=== PATIENT | female | born 1990 | race American Indian/Alaskan Native ===

== ENCOUNTER 2018-03-28 08:26 | Emergency (ER) | payer MEDICAID ==
[2018-03-28 09:30] VITALS: BMI 32.8
--- NOTE | 2018-03-28 12:54 | US ---
Date of service: 03/28/2018 PROCEDURE: Limited obstetrical ultrasound examination HISTORY: EFW/dating and cervical length only COMPARISON: Not available TECHNIQUE: Transabdominal FINDINGS: Single live intrauterine gestation identified in breech presentation. heart rate 134 beats per minute. Grossly normal amniotic fluid volume. Anterior placenta. No previa. Cervix closed and measures 4.7 cm in length. biometry yields a gestational age of 23 weeks 5 days. [place] by ultrasound is 07/20/2018. The EFW is 637.81 g. anatomy was not evaluated at this time. Note is made of a 4 chamber heart. There is fluid distending the stomach and urinary bladder. IMPRESSION: Single live intrauterine gestation of approximately 23 weeks 5 days gestational age. Breech presentation. No previa. Anterior placenta. Normal amniotic fluid volume. Heart rate 134. Anatomic evaluation not performed at this time as per request from emergency department
[2018-03-28 19:10] VITALS: BP 114/89; PULSE 113; O2SAT 99
== END 2018-03-28 13:55 | disposition home or self-care (01) ==
LOC: H.EROB2 08:26
DX: O26.92 Pregnancy related conditions, unspecified, second trimester (principal); R10.2 Pelvic and perineal pain; Z3A.24 24 weeks gestation of pregnancy

== ENCOUNTER 2018-03-30 21:56 | Emergency (ER) | payer MEDICAID ==
[2018-03-30 21:56] VITALS: BMI 32.8
[2018-03-30 22:06] VITALS: PULSE 89; RESP 18; TEMP 98.3
[2018-03-30 22:47] LABS: BASO % 0.2 % (0.0-2.0); EOS # 0.1 K/uL (0.0-0.7); EOS % 0.9 % (0.0-4.0); HEMOGLOBIN 10.9 g/dL (12.0-16.0); LYMPH % 28.7 % (20.0-40.0); MEAN CELL VOLUME 91.1 fl (81.0-99.0); MEAN CORPUSCULAR HEMOGLOBIN 30.8 pg (27.0-31.0); MEAN CORPUSCULAR HGB CONC 33.8 g/dL (33.0-37.0); MEAN PLATELET VOLUME 8.6 fl (7.2-11.7); MONO # 0.4 K/uL (0.0-0.8); MONO % 6.4 % (0.0-10.0); NEUT # 4.4 K/uL (1.8-7.0); NEUT % 63.8 % (50.0-75.0); RBC 3.53 Mil/uL (3.80-5.20); WHITE BLOOD COUNT 6.9 K/uL (4.8-10.8)
[2018-03-30 22:58] LABS: ALBUMIN 3.2 g/dL (3.5-5.0); ALT/SGPT 20 U/L (9-52); AST/SGOT 20 U/L (14-36); BLOOD UREA NITROGEN 6 mg/dl (7-17); CALCIUM 8.8 mg/dL (8.4-10.2); GFR NON-AFRICAN AMERICAN > 60
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
--- NOTE | 2018-03-31 00:14 | ED PDOC ---
- Laboratory Results Result Diagrams: 03/30/18 22:40 03/30/18 22:40 - ECG O2 Sat by Pulse Oximetry: 99 (RA) Medical Decision Making Medical Decision Making: Time: 00:00 --Patient labs have been reviewed and patient is medically stable for psychiatric admission if required. Patient care endorsed from Dr. Murray to Dr. Mccurdy pending crisis eval. Scribe Attestation: Documented by Greg Carvalho acting as a scribe for Noah Mccurdy MD. Provider Scribe Attestation: All medical record entries made by the Scribe were at my direction and personally dictated by me. I have reviewed the chart and agree that the record accurately reflects my personal performance of the history, physical exam, medical decision making, and the department course for this patient. I have also personally directed, reviewed, and agree with the discharge instructions and disposition. Disposition - Clinical Impression Clinical Impression: Schizophrenia - POA Present On Arrival: None - Disposition Referrals: [facility] [Outside] Disposition: Routine/Home Disposition Time: 05:00 Condition: GOOD Instructions: Schizophrenia
[2018-03-31 05:44] VITALS: BP 110/77
[2018-03-31 19:03] VITALS: O2SAT 99
== END 2018-03-31 05:58 | disposition home or self-care (01) ==
LOC: H.ER 21:56
DX: O99.342 Other mental disorders complicating pregnancy, second trimester (principal); F20.9 Schizophrenia, unspecified; R45.851 Suicidal ideations; Z3A.24 24 weeks gestation of pregnancy

== ENCOUNTER 2018-04-06 18:51 | Inpatient (IN) | payer MEDICAID ==
[2018-04-06 18:52] VITALS: BMI 32.8
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
[2018-04-06 20:06] LABS: BASO % 0.2 % (0.0-2.0); EOS # 0.1 K/uL (0.0-0.7); EOS % 0.8 % (0.0-4.0); HEMOGLOBIN 10.2 g/dL (12.0-16.0); LYMPH # 1.8 K/uL (1.0-4.3); LYMPH % 25.1 % (20.0-40.0); MEAN CELL VOLUME 90.3 fl (81.0-99.0); MEAN CORPUSCULAR HEMOGLOBIN 31.1 pg (27.0-31.0); MEAN CORPUSCULAR HGB CONC 34.4 g/dL (33.0-37.0); MEAN PLATELET VOLUME 8.7 fl (7.2-11.7); MONO # 0.5 K/uL (0.0-0.8); MONO % 7.5 % (0.0-10.0); NEUT # 4.9 K/uL (1.8-7.0); NEUT % 66.4 % (50.0-75.0); NRBC % 0.1 % (0.0-0.0); RBC 3.29 Mil/uL (3.80-5.20); RED CELL DISTRIBUTION WIDTH 13.9 % (11.5-14.5); WHITE BLOOD COUNT 7.3 K/uL (4.8-10.8)
[2018-04-06 20:12] LABS: SQUAMOUS EPITHIAL 2 /hpf (0-5); URINE AMORPHOUS SEDIMENT MANY /ul (<OCC); URINE BACTERIA RARE (<OCC); URINE BILIRUBIN NEGATIVE (NEGATIVE); URINE BLOOD NEGATIVE (NEGATIVE); URINE CLARITY CLOUDY (Clear); URINE COLOR YELLOW (YELLOW); URINE GLUCOSE (UA) NEG (Normal); URINE LEUKOCYTE ESTERASE NEG Leu/uL (Negative); URINE PROTEIN NEGATIVE (NEGATIVE); URINE UROBILINOGEN 0.2-1.0 mg/dL (0.2-1.0)
[2018-04-06 20:21] LABS: ALB/GLOB RATIO 1.1 (1.0-2.1); ALT/SGPT 19 U/L (9-52); AST/SGOT 18 U/L (14-36); BLOOD UREA NITROGEN 9 mg/dl (7-17); CALCIUM 8.9 mg/dL (8.4-10.2); GFR NON-AFRICAN AMERICAN > 60
[2018-04-06 20:34] LABS: BARBITURATES, UR NEGATIVE (NEGATIVE); BENZODIAZEPINES, UR NEGATIVE (NEGATIVE); OPIATES, UR NEGATIVE (NEGATIVE); PHENCYCLIDINE, UR NEGATIVE (NEGATIVE)
[2018-04-07 09:31] VITALS: O2SAT 99
--- NOTE | 2018-04-07 13:53 | CP.PCM.CON ---
History of Present Illness - History of Present Illness History of Present Illness: 28 yo female 6 months with history of anxiety and schizophrenia admitted to psyche unit because of increased agitation. Review of Systems - Review of Systems All systems: reviewed and no additional remarkable complaints except (aside from those mentioned above, 12 point system review were negative by me) Past Patient History - Infectious Disease Hx of Infectious Diseases: None - Past Social History Smoking Status: Unknown If Ever Smoked Chewing Tobacco Use: No Cigar Use: No Alcohol: None Drugs: Denies Home Situation {Lives}: With Family - CARDIAC Hx Cardiac Disorders: No - PULMONARY Hx Tuberculosis: No - NEUROLOGICAL HX Cerebrovascular Accident: No Hx Seizures: No - HEMATOLOGICAL/ONCOLOGICAL Hx Cancer: No Hx Human Immunodeficiency Virus (HIV): No - GENITOURINARY/GYNECOLOGICAL Hx Sexually Transmitted Disorders: No - PSYCHIATRIC Hx Anxiety: Yes Hx Depression: Yes Hx Schizophrenia: Yes - SURGICAL HISTORY Hx Surgeries: No - ANESTHESIA Hx Anesthesia: No Hx Anesthesia Reactions: No Meds Allergies/Adverse Reactions: Allergies Allergy/AdvReac Type Severity Reaction Status Date / Time pollen extracts Allergy Verified 03/06/18 19:37 - Medications Medications: Current Medications Diphenhydramine HCl (Benadryl) 25 mg PO Q12 PRN PRN Reason: Allergy symptoms Haloperidol (Haldol) 0.5 mg PO BID CARMINA Haloperidol (Haldol) 0.5 mg PO HS CARMINA Haloperidol (Haldol) 2 mg PO Q12 PRN PRN Reason: Agitation Multivit/Folic Acid/Iron () 1 tab PO DAILY CARMINA Physical Exam - Constitutional Appears: No Acute Distress - Head Exam Head Exam: ATRAUMATIC - Eye Exam Eye Exam: absent: Scleral icterus - ENT Exam ENT Exam: Mucous Membranes Moist - Neck Exam Neck exam: Negative for: Meningismus - Respiratory Exam Respiratory Exam: absent: Rales, Rhonchi, Wheezes, Respiratory Distress - Cardiovascular Exam Cardiovascular Exam: REGULAR RHYTHM, +S1, +S2 - GI/Abdominal Exam GI & Abdominal Exam: Distended, Soft. absent: Tenderness - Rectal Exam Rectal Exam: Deferred - Extremities Exam Extremities exam: Negative for: calf tenderness - Back Exam Back exam: NORMAL INSPECTION - Neurological Exam Neurological exam: Alert, Oriented x3 - Psychiatric Exam Psychiatric exam: Normal Affect - Skin Skin Exam: Dry, Intact Results - Vital Signs Recent Vital Signs: Last Vital Signs Temp 98.5 F 04/07/18 12:33 Pulse 61 04/07/18 12:33 Resp 17 04/07/18 12:33 BP 98/50 L 04/07/18 12:33 Pulse Ox 99 04/07/18 08:00 - Labs Result Diagrams: 04/06/18 19:56 04/06/18 20:08 Labs: Laboratory Results - last 24 hr 04/06/18 04/06/18 04/06/18 19:45 19:45 19:56 WBC RBC Hgb Hct MCV MCH MCHC RDW Plt Count MPV Neut % (Auto) Lymph % (Auto) [place] % (Auto) Eos % (Auto) Baso % (Auto) Neut # (Auto) Lymph # (Auto) [place] # (Auto) Eos # (Auto) Baso # (Auto) Sodium Potassium Chloride Carbon Dioxide Anion Gap BUN Creatinine Est GFR ( Amer) Est GFR (Non-Af Amer) Random Glucose Calcium Total Bilirubin AST ALT Alkaline Phosphatase Total Protein Albumin Globulin Albumin/Globulin Ratio Beta HCG, Quant Urine Color Yellow Urine Clarity Cloudy Urine pH 7.0 Ur Specific [place] 1.018 Urine Protein Negative Urine Glucose (UA) Neg Urine Ketones Negative Urine Blood Negative Urine Nitrate Negative Urine Bilirubin Negative Urine Urobilinogen 0.2-1.0 Ur Leukocyte Esterase Neg Urine RBC (Auto) 3 Ur Squamous Epith Cells 2 Amorphous Sediment Many H Urine Bacteria Rare Urine Opiates Screen Negative Urine Methadone Screen Negative Ur Barbiturates Screen Negative Ur Phencyclidine Scrn Negative Ur Amphetamines Screen Negative U Benzodiazepines Scrn Negative U Oth Cocaine Metabols Negative U Cannabinoids Screen Negative Alcohol, Quantitative < 10 04/06/18 04/06/18 19:56 20:08 WBC 7.3 RBC 3.29 L Hgb 10.2 L Hct 29.7 L MCV 90.3 MCH 31.1 H MCHC 34.4 RDW 13.9 Plt Count 163 MPV 8.7 Neut % (Auto) 66.4 Lymph % (Auto) 25.1 [place] % (Auto) 7.5 Eos % (Auto) 0.8 Baso % (Auto) 0.2 Neut # (Auto) 4.9 Lymph # (Auto) 1.8 [place] # (Auto) 0.5 Eos # (Auto) 0.1 Baso # (Auto) 0.0 Sodium 136 Potassium 3.8 Chloride 107 Carbon Dioxide 23 Anion Gap 10 BUN 9 Creatinine 0.6 L Est GFR ( Amer) > 60 Est GFR (Non-Af Amer) > 60 Random Glucose 89 Calcium 8.9 Total Bilirubin 0.1 L AST 18 ALT 19 Alkaline Phosphatase 56 Total Protein 5.9 L Albumin 3.0 L Globulin 2.8 Albumin/Globulin Ratio 1.1 Beta HCG, Quant 00297.00 Urine Color Urine Clarity Urine pH Ur Specific [place] Urine Protein Urine Glucose (UA) Urine Ketones Urine Blood Urine Nitrate Urine Bilirubin Urine Urobilinogen Ur Leukocyte Esterase Urine RBC (Auto) Ur Squamous Epith Cells Amorphous Sediment Urine Bacteria Urine Opiates Screen Urine Methadone Screen Ur Barbiturates Screen Ur Phencyclidine Scrn Ur Amphetamines Screen U Benzodiazepines Scrn U Oth Cocaine Metabols U Cannabinoids Screen Alcohol, Quantitative Assessment & Plan (1) Agitation Status: Acute
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
--- NOTE | 2018-04-07 17:42 | PCM.BM ---
<Heron Jenkins - Last Filed: 04/07/18 17:40> Treatment Plan Problems - Problems identified on initial assessmt Altered Thought Process Date Initiated: 04/07/18 Time Initiated: 17:41 Assessment reference: NA Status: Active Suicidal Ideation Date Initiated: 04/07/18 Time Initiated: 17:42 Assessment reference: NA Status: Active Treatment assets and liabiliti Patient Assests: cooperative Patient Liabilities: relationship conflicts - Milieu Protocol Maintain good personal hygiene: daily Encourage regular showers, daily Remind patient to perform daily oral care, daily Assist patient to perform ADL's Conduct patient checks and document Observation sheet: Q15 minutes Maintain personal safety: every shift Educate patient to report safety concerns to staff, every shift Monitor environment for contraband/sharps Medication safety: Monitor for expected outcome, potential side effects: every shift, Assess barriers to learning: every shift, Assess readiness for medication education: every shift Milieu Narrative: pt at current time is mother reported to be POA discussed with pt and mother the risks and benefits of being on psychotropic medications during the discussed that haldol is considered evidence based to be the safest during and also as pt has been decomensating after being palced on latuda , will, start haldol 0.5mg tid , with benadryl prn for EPS pt will be monitored for psychopharmacological effect and side effect profile 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 and supportive therapy Family Contact Family involvement: Family/SO is involved Discharge/Continuing Care - Treatment Team Participation Patient/Family/SO Statement: pt at current time is mother reported to be POA discussed with pt and mother the risks and benefits of being on psychotropic medications during the discussed that haldol is considered evidence based to be the safest during and also as pt has been decomensating after being palced on latuda , will, start haldol 0.5mg tid , with benadryl prn for EPS pt will be monitored for psychopharmacological effect and side effect profile 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 Pt's mother still endorses that she has POA to make pt's medical and financial decisions despite continually failing to produce documents that corroborate this. Chey reported that she advised pt to sign the 48 hour notice because she belongs at home where her family can care for her. Chey denied that she believes pt is a danger to herself at this time or at the time of admission, despite PES assessment reporting that pt's mother advocated for admission for pt's safety. Chey produced an appointment card that showed that pt has an appointment to see Manjinder Barbosa at [facility] on 04/18/18 at 1300. Chey hopes that pt can be discharged on 04/09/18. - Goals for Treatment Patient goals for treatment: Pt was unable to express any specific goals for treatment. Patient's family/SO goals for treatment: Pt's mother could not express any specific goals for treatment and stated that she wants her daughter to return home. Discharge/Continuing Care - Education Needs Education Needs: Family Medication, Family Diagnosis/Disease Process, Family Coping Skills, Family Placement options, Family Community resources, Family Aftercare Safety Plan, Patient Medication, Patient Diagnosis/Disease Process, Patient Coping Skills, Patient Placement options, Patient Community resources, Patient Aftercare Safety Plan - Discharge Discharge Criteria: Tolerates medication w/o severe side effects, Free of Suicidal thoughts, Free of paranoid thoughts, Free of agitation, Ability to care for self, Reduction of target symptoms Discharge to:: Home, With Family - Additional Comments 04/11/18 07:14 Pt was seen in treatment team on 04/09/18. Pt expressed that she needed to leave the hospital because she "is a mom." Pt was irritable and defiant and was unwilling to speak with staff. Pt is currently being referred for involuntary screening by [facility]. - Treatment Team Participation Discussed with Family/SO: Yes Was Patient/Family/SO present at Treatment Team Meeting: Yes
[2018-04-08 08:10] LABS: T4 12.1 ug/dl (5.5-11.0)
[2018-04-08] MEDS: Prenatal Multivit/Folic Acid/Iron Tab PO SCH (09:29)
[2018-04-08 09:41] VITALS: RESP 18
--- NOTE | 2018-04-08 12:20 | PCM.PYCHPN ---
Psychiatric Progress Note - Psychiatric Progress Note Patient seen today, length of contact: pt evaluated discussed with team chart reviewed Patient Chief Complaint: I could not sleep last night Problems Identified/Issues Discussed: pt seen in day room, cooperative reported feeling anxious due to poor sleep with early insomnia, discussed giving benadryl, pt reported partial clearing off of the auditory hallucinations, , denied any current suicidal or homicidal ideation, noreportedside effects of medication, presenting with limited insight into illness Medical Problems: pt has about three inpatient hospitalizations , last was at [facility] currently follows up at [facility] DSM 5 Symptoms Update: schizoaffective disorder borderline intellectual function Medication Change: No Medical Record Reviewed: Yes Mental Status Examination - Cognitive Function Orientation: Person, Place, Situation Memory: Intact Attention: Poor Concentration: Poor Association: WNL Fund of Knowledge: Poor Decription of patient's judgement and insights: poor insight and judgment - Mood Mood: Anxious - Affect Affect: Constricted - Speech Additional comments: under productive - Formal Thought Process Formal Thought Process: Hallucinations Psychotic Thoughts and Behaviors: pt presentingwith non command AH - Suicidal Ideation Suicidal Ideation: No - Homicidal Ideation Homicidal Ideation: No Goal/Treatment Plan - Goal/Treatment Plan Need for Continued Stay: Severe depression anxiety, Discharge may exacerbated symptoms Progress Toward Problem(s) and Goals/Treatment Plan: CONTINUE WITH HALDOL 0.5MG TID BENADRYL QHS FOR INSOMNIA 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
[2018-04-09] MEDS: Prenatal Multivit/Folic Acid/Iron Tab PO SCH (08:33)
[2018-04-09 09:17] VITALS: TEMP 97.9
--- NOTE | 2018-04-09 10:39 | PCM.PYCHPN ---
Psychiatric Progress Note - Psychiatric Progress Note Patient seen today, length of contact: pt evaluated discussed with team chart reviewed Patient Chief Complaint: I am hearing voices they tell me to hurt my self and hurt others Problems Identified/Issues Discussed: pt seen in bed, poor eye contact. anxious mood and affect, appears internally preoccupied, angry and verbally agressive asking the undesigned to leave the room, on further interviewing, pt reported experiencing auditory hallucinations , telling her to hurt self and hurt others, when asked how she would hurt herself , she stated she would overdose on medications, , patient guarded and paranoid towards staff, with , educted patient the need to continue on the unit for stabilization of medications, she declined and signed 48 hours requesting to be discharged Medical Problems: pt has about three inpatient hospitalizations , last was at [facility] currently follows up at [facility] DSM 5 Symptoms Update: schizoaffective disorder bipolar type Medication Change: Yes (increase haldol) Medical Record Reviewed: Yes Mental Status Examination - Cognitive Function Orientation: Person, Place, Situation Memory: Intact Attention: Poor Concentration: Poor Association: WNL Fund of Knowledge: Poor Decription of patient's judgement and insights: poor insight and judgment - Mood Mood: Anxious - Affect Affect: Constricted Additional comments: labile, irritable, angry - Speech Speech: Loud - Formal Thought Process Formal Thought Process: Hallucinations, Paranoia Psychotic Thoughts and Behaviors: pt reported auditory hallucinations asking her to hurt self and others - Suicidal Ideation Suicidal Ideation: Yes - Homicidal Ideation Homicidal Ideation: Yes Goal/Treatment Plan - Goal/Treatment Plan Need for Continued Stay: Severe depression anxiety, Discharge may exacerbated symptoms Progress Toward Problem(s) and Goals/Treatment Plan: increase haldol 2mg TID pt at current mental status continues to be danger to self and others, expressing both suicidal and homicidal ideation, pt irritable and verbally aggressive towards staff, signed 48 hours notice requesting to be discharged, pt will be referred for screening for involuntary admission for continuity further stabilization Estimated Date of D/C: 04/10/18
[2018-04-09 16:44] VITALS: BP 103/55; PULSE 64
[2018-04-09] MEDS ORDERED: Benzocaine/Menthol (Cepacol) Lozenge PO PRN (22:15)
[2018-04-10] MEDS: Prenatal Multivit/Folic Acid/Iron Tab PO SCH (13:18)
--- NOTE | 2018-04-10 15:40 | PCM.PYCHPN ---
Psychiatric Progress Note - Psychiatric Progress Note Patient seen today, length of contact: pt evaluated discussed with team chart reviewed Patient Chief Complaint: I am good Problems Identified/Issues Discussed: pt seen in day room, poor eye contact. guarded , paranoid , appears internally preoccupied, underproductive speech, poor insight into illness labile affect, refusing to participate in treatment appears responding to internal stimuli, denied command hallucinations, denied suicidal or homicidal ideation Medical Problems: pt has about three inpatient hospitalizations , last was at [facility] currently follows up at [facility] DSM 5 Symptoms Update: schizoaffective disorder borderline intellectual function Medication Change: No Medical Record Reviewed: Yes Mental Status Examination - Cognitive Function Orientation: Person, Place, Situation Memory: Intact Attention: Poor Concentration: Poor Association: WNL Fund of Knowledge: Poor Decription of patient's judgement and insights: poor insight and judgment - Mood Mood: Anxious - Affect Affect: Constricted - Speech Speech: Loud - Formal Thought Process Formal Thought Process: Hallucinations, Paranoia Psychotic Thoughts and Behaviors: pt reported auditory hallucinations asking her to hurt self and others - Suicidal Ideation Suicidal Ideation: Yes - Homicidal Ideation Homicidal Ideation: Yes Goal/Treatment Plan - Goal/Treatment Plan Need for Continued Stay: Severe depression anxiety, Discharge may exacerbated symptoms Progress Toward Problem(s) and Goals/Treatment Plan: haldol 2mg TID pt continues to be floridly psychotic , needs stabilization, pt signed 48 our notice requesting discharge, pt was screened and accepted by [facility] for involuntary admission, awaiting a bed f Estimated Date of D/C: 04/10/18
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
== END 2018-04-11 01:30 | DRG 430 ==
LOC: H.ER 18:51 → H.ERHOLD 21:35 → H.PSYCH 04-07 12:50
PROVIDERS: ADMIT Psychiatry & Neurology Psychiatry; ATTEND Psychiatry & Neurology Psychiatry
PROC: GZHZZZZ Group Psychotherapy (ICD-10-PCS; principal; 2018-04-06)
PROC: GZ58ZZZ Individual Psychotherapy, Cognitive-Behavioral (ICD-10-PCS; 2018-04-06)
DX: F25.0 Schizoaffective disorder, bipolar type (principal); O99.342 Other mental disorders complicating pregnancy, second trimester; R41.83 Borderline intellectual functioning; F41.9 Anxiety disorder, unspecified; R45.851 Suicidal ideations; R45.850 Homicidal ideations; G47.00 Insomnia, unspecified; D64.9 Anemia, unspecified

== ENCOUNTER 2018-04-29 20:39 | Emergency (ER) | payer MEDICAID ==
--- NOTE | 2018-04-29 23:41 | OBDCSUM ---
Datetime: 04/29/2018 23:08 Discharged to, Provider: Home Follow up at, Provider: [facility] Disch Instr Activity: Normal activity Disch Instr Diet: Regular Discharge Instructions, Provider: Routine instructions given Discharge Time: 04/29/2018 23:00 Follow up in weeks, Provider: Call to make appointment Disch Referrals: None Discharge Diagnosis Prov Other: Gastroenteritis at 26 weeks
--- NOTE | 2018-04-29 23:42 | OBHP ---
Datetime: 04/29/2018 22:31 IP Adm Impression: , intrauterine IP Admit Plan: Observation/Evaluation; Discharge home Admit Comment, IP Provider: 28 y/o , 26 wks based on LMP with [place] of 08/05/18 presents to [facility] with nausea, vomiting and diarrhea that started last Sunday. Patient had 2-3 episodes of vomiting and watery diarrhea which improved over last 2 days. Denies any naueaa, vomiting or diarrhea today. Denies eating any outside food. Reports feeling normal movements. Denies LOF or VB. Denies feve r, chills, abdominal pain, back pain, dysuria, dizziness, or headaches. VS, BP 90/47, HR 71 PNC: [place], records unavailable course: records unavailable PMHx: Denies PSHx: Denies Allergies: NKDA F/H: Noncontributory Medications: PNVs SocialHx: Denies alcohol/drugs/tobacco PE: General: NAD Chest: RRR, S1S2 present Lungs: CTA B/L Abdomen: NT, No rigidity, guarding, BS + Back: No CVA tenderness B/L Ext: No pedal edema or calf tenderness A/P: 28 y/o , 26 wks based on LMP with [place] of 08/05/18 presents to [facility] with nausea, vomiti ng and diarrhea - EFM and toco monitoring - Nop contractions on [place] - NST reactive, + accels, variability moderate, no decels - Not in active labor - Resolution of N/V/D - patient D/C with F/U for US tomorrow at [facility] - F/U with PNC as scheduled at [facility] - Labor precaution provided, Pt advised to maintain hydration. Case discussed with attending Cesar De L aVega, PGY1 OB Hospiatlist Addendum: Pt seen by me. Agree w/ above. 28 yo at 26 wks c/o N/V/D on 04/27/2018, reports that she feels better now. FHT reassuring. Pt discharged home, has an ap pointment for u/s tomorrow. (ES) Pelvic Type - PN: Not Done Extremities - PN: Normal Abdomen - PN: Normal Back - PN: Normal Breast - PN: Normal Lungs - PN: Normal Heart - PN: Normal Thyroid - PN: Not Done Neurologic - PN: Normal HEENT - PN: Normal General - PN: Normal FHR - Baseline A Provider: 130 Contraction Comments Provider: none Comments, ACOG Physical Exam: General: NAD Chest: RRR, S1S2 present Lungs: CTA B/L Abdomen: NT, No rigidity, guarding, BS + Back: No CVA tenderness B/L Ext: No pedal edema or calf tenderness Vital Signs Provider: Reviewed; Within Normal Limits IP Chief Complaint: Other NICHD Variability Prov Fetus A: Moderate 6-25bpm NICHD Accel Fetus A IP Provider: 10X10 FHR Category Provider Fetus A: Category I NICHD Decel Fetus A IP Provider: None Genitourinary Exam: Not Done DTRs - PN: Not Done
[2018-05-03 18:13] VITALS: BP 93/47; PULSE 68; RESP 20; TEMP 98.1; O2SAT 99
== END 2018-04-29 23:00 | disposition home or self-care (01) ==
LOC: H.EROB2 20:39
DX: O21.0 Mild hyperemesis gravidarum (principal); O26.92 Pregnancy related conditions, unspecified, second trimester; R19.7 Diarrhea, unspecified; Z3A.26 26 weeks gestation of pregnancy

== ENCOUNTER → 2018-07-01 | Emergency (ER) | payer MEDICAID ==
[2018-07-02 01:19] VITALS: BP 111/52; PULSE 92; O2SAT 98
== END | disposition home or self-care (01) ==
LOC: H.EROB2 14:25
DX: O26.93 Pregnancy related conditions, unspecified, third trimester (principal); R10.2 Pelvic and perineal pain; Z3A.38 38 weeks gestation of pregnancy

== ENCOUNTER 2018-09-22 07:55 | Inpatient (IN) | payer MEDICAID ==
[2018-09-22 07:58] VITALS: BMI 31.8
--- NOTE | 2018-09-22 09:42 | ED PDOC ---
HPI: Psych/Substance Abuse Time Seen by Provider: 09/22/18 08:57 Chief Complaint (Nursing): Psychiatric Evaluation Chief Complaint (Provider): Psychiatric Evaluation History Per: Patient, Family (Mother) Onset/Duration Of Symptoms: Days Current Symptoms Are (Timing): Still Present Additional Complaint(s): Patient is a 28 y/o female with a PMHx of anemia, anxiety, bipolar disorder, depression, and paranoid schizophrenia who was brought in by mother for paranoid delusions after reporting voices about something or someone planning on hurting her. According to mother, patient has been unable to sleep for the past three days. Patient indicated questionable compliance with medication. PCP: None Provided Past Medical History Vital Signs: Last Vital Signs Temp 98.7 F 09/22/18 07:59 Pulse 109 H 09/22/18 07:59 Resp 20 09/22/18 07:59 BP 140/74 09/22/18 07:59 Pulse Ox 99 09/22/18 07:59 - Medical History PMH: Anemia, Anxiety, Bipolar Disorder, Depression, Schizophrenia (paranoid) Denies: Diabetes, Hepatitis, HIV, HTN, Chronic Kidney Disease, Seizures, Sexu ally Transmitted Disease - Surgical History Surgical History: No Surg Hx - Family History Family History: States: Unknown Family Hx, Hypertension - Social History Alcohol: None Drugs: Denies - Immunization History Hx Tetanus Toxoid Vaccination: No Hx Influenza Vaccination: No Hx Pneumococcal Vaccination: No - Home Medications Home Medications: Ambulatory Orders Medication Instructions Recorded Haloperidol [Haldol] 5 mg PO BID 02/15/18 Vit Calc,Iron,Folic 1 tab PO DAILY #30 tablet 02/18/18 [ Vitamins] DiphenhydrAMINE [Benadryl] 25 mg PO BID 03/06/18 - Allergies Allergies/Adverse Reactions: Allergies Allergy/AdvReac Type Severity Reaction Status Date / Time pollen extracts Allergy Verified 03/06/18 19:37 Review of Systems ROS Statement: Except As Marked, All Systems Reviewed And Found Negative (as per HPI) Neurological: Positive for: Other (unable to sleep) Psych: Positive for: Other (hearing voices). Negative for: Suicidal ideation (or homicidal ideation) - ECG O2 Sat by Pulse Oximetry: 99 (RA) Pulse Ox Interpretation: Normal Medical Decision Making Medical Decision Making: Time: 902 Impression: Paranoid Schizophrenia Decompensation Plan: Drug Screen, Urine Crisis Evaluation Urine Urine Dipstick 1:1 Observation CONT Scribe Attestation: Documented by Pelon Schneider, acting as a scribe for Sanjuana Murray MD. Provider Scribe Attestation: All medical record entries made by the Scribe were at my direction and personally dictated by me. I have reviewed the chart and agree that the record accurately reflects my personal performance of the history, physical exam, medical decision making, and the department course for this patient. I have also personally directed, reviewed, and agree with the discharge instructions and disposition. Disposition - Disposition
[2018-09-22 10:42] LABS: BARBITURATES, UR NEGATIVE (NEGATIVE); BENZODIAZEPINES, UR NEGATIVE (NEGATIVE); OPIATES, UR NEGATIVE (NEGATIVE); PHENCYCLIDINE, UR NEGATIVE (NEGATIVE)
[2018-09-22 13:48] LABS: BASO % 0.7 % (0.0-2.0); EOS # 0.1 K/uL (0.0-0.7); EOS % 1.4 % (0.0-4.0); LYMPH # 2.2 K/uL (1.0-4.3); LYMPH % 41.8 % (20.0-40.0); MEAN CELL VOLUME 85.3 fl (81.0-99.0); MEAN CORPUSCULAR HEMOGLOBIN 28.6 pg (27.0-31.0); MEAN CORPUSCULAR HGB CONC 33.5 g/dL (33.0-37.0); MEAN PLATELET VOLUME 8.1 fl (7.2-11.7); MONO # 0.5 K/uL (0.0-0.8); MONO % 8.8 % (0.0-10.0); NEUT # 2.4 K/uL (1.8-7.0); NEUT % 47.3 % (50.0-75.0); NRBC % 0.2 % (0.0-0.0); RBC 3.84 Mil/uL (3.80-5.20); WHITE BLOOD COUNT 5.2 K/uL (4.8-10.8)
[2018-09-22 14:16] LABS: ALB/GLOB RATIO 1.2 (1.0-2.1); ALBUMIN 4.1 g/dL (3.5-5.0); ALT/SGPT 28 U/L (9-52); AST/SGOT 25 U/L (14-36); BLOOD UREA NITROGEN 12 mg/dl (7-17); CALCIUM 9.5 mg/dL (8.4-10.2); GFR NON-AFRICAN AMERICAN > 60
[2018-09-22 14:40] LABS: ACETAMINOPHEN < 10.0 ug/ml (10.0-30.0); SALICYLATE < 1.0 mg/dl
[2018-09-22 14:52] VITALS: O2SAT 100
--- NOTE | 2018-09-22 14:59 | RAD ---
Date of service: 09/22/2018 HISTORY: admission COMPARISON: No prior. TECHNIQUE: Chest PA and lateral FINDINGS: LUNGS: No active pulmonary disease. PLEURA: No significant pleural effusion identified. No pneumothorax apparent. CARDIOVASCULAR: No aortic atherosclerotic calcification present. Normal cardiac size. No pulmonary vascular congestion. OSSEOUS STRUCTURES: No significant abnormalities. VISUALIZED UPPER ABDOMEN: Normal. OTHER FINDINGS: None. IMPRESSION: No active disease.
[2018-09-22] MEDS ORDERED: Alum-Mag Hydrox-Simethicone Susp (30 mL) PO PRN (15:49)
[2018-09-22] MEDS ORDERED: DiphenhydrAMINE 50 mg/ml Inj IM PRN (15:49)
[2018-09-22] MEDS ORDERED: Magnesium Hydroxide Susp 30 ml UD PO PRN (15:49)
--- NOTE | 2018-09-22 18:16 | PCM.BM ---
<Mary Lebron - Last Filed: 09/22/18 18:14> Treatment Plan Problems - Problems identified on initial assessmt altered sleep pattern Date Initiated: 09/22/18 Time Initiated: 18:15 Date resolved: 09/25/18 Assessment reference: NA Status: Active Priority: 1 altered thought process Date Initiated: 09/22/18 Time Initiated: 18:16 Date resolved: 09/25/18 Assessment reference: NA Status: Active Priority: 2 medication adherence Date Initiated: 09/22/18 Time Initiated: 18:16 Date resolved: 09/25/18 Assessment reference: NA Status: Active Priority: 3 Treatment assets and liabiliti Patient Assests: cooperative, negotiates basic needs Patient Liabilities: poor support system, other - Milieu Protocol Maintain good personal hygiene: every shift Encourage regular showers, every shift Remind patient to perform daily oral care, every shift Assist patient to perform ADL's Maintain personal safety: every shift Educate patient to report safety concerns to staff, every shift Monitor environment for contraband/sharps Medication safety: Monitor for expected outcome, potential side effects: every shift, Assess barriers to learning: every shift, Assess readiness for medication education: every shift <Kathy Lai - Last Filed: 09/25/18 14:12> - Diagnosis (1) Psychosis Status: Acute Interventions: 09/25/18 14:12 pharmacotherapy <Kevin Dugan - Last Filed: 09/25/18 14:18> Family Contact Family involvement: Family/SO is involved Family contact: Patient agrees to contact, Family has been contacted by patient, Telephone contact initiated by staff Family contact name: Chey Lewis - Mother ([phone]) Family contacted how many times per week?: 7 Family contact comment: [employer] spoke with pt's mother at 1000 and 1500 to discuss pt's presentation on unit and discharge. Pt's mother insisted that she is coming to airport ramp supervisor her daughter as her daughter is not a danger to anyone and just needed to sleep for a few days. Pt's mother reported that pt was admitted on a 72 hour hold and she is not a danger to herself or anyone else. [employer] Boss explained to pt's mother both times that pt signed herself in voluntarily and [place] does not operate on a 72 hour hold admitting process and if pt wants to leave she can sign a 48 hour notice. [employer] Boss explained to pt's mother the second time they spoke that pt did sign a 48 hour notice and would be discharged on if she was screened and not accepted. Pt's mother reported that pt has a doctors appointment on 09/24 with Florentino ESCOBAR that she must attend as rationale for discharge. [employer] Boss explained that pt is not attending to her ADL's and that she may be psychotic with internal preoccupation and possible hallucinations and would benefit from further observation and stabilization. [employer] Boss explained that pt has been calm on the unit, yet very isolative. - Goals for Treatment Patient goals for treatment: Pt unable to offer goals for treatment due to limited level of functioning. Patient's family/SO goals for treatment: Pt's mother offered no goals for treatment and is reporting that she would like to airport ramp supervisor pt and take her home from the unit. Discharge/Continuing Care - Education Needs Education Needs: Family Medication, Family Diagnosis/Disease Process, Family Coping Skills, Family Community resources, Family Aftercare Safety Plan, Patient Medication, Patient Diagnosis/Disease Process, Patient Coping Skills, Patient Community resources, Patient Aftercare Safety Plan - Discharge Discharge Criteria: Tolerates medication w/o severe side effects, Free of paranoid thoughts, Free of agitation, Normal sleep pattern, Ability to care for self, Reduction of target symptoms Discharge to:: Home, With Family - Treatment Team Participation Patient/Family/SO Statement: 09/25/18 14:15 Pt was seen in treatment team on 09/25/18. Team explained to pt that she would be transferred to [facility] as soon as a bed became available as she was screened and accepted. Pt recalled meeting with a [facility] screener and did not verbalize any complaints or questions regarding her transfer. Pt denied SI/HI and AVT hallucinations. Pt is oriented X3. Discussed with Family/SO: Yes Was Patient/Family/SO present at Treatment Team Meeting: Yes
--- NOTE | 2018-09-22 18:55 | CP.PCM.CON ---
History of Present Illness - History of Present Illness History of Present Illness: History obtained from pt and medical record Chief Complaint : consulted for medical eval, mgt of medical problems HPI: 28 y/o female with hx of ? HTN, Anemia, Bipolar Dis and Schizoprenia, was brought in by her mother because of paranoia. She has been hallucinating and thinking that there are people who wants to hurt her. When I asked her why she was admitted , she states that : "there are people who reported me that I'm bad " however she states that she is " not doing anything and not stealing". She denies any fever, no CP, no SOB, no abd pain. Review of Systems - Review of Systems Systems not reviewed;Unavailable: Psychotic All systems: reviewed and no additional remarkable complaints except Review of Systems: all systems reviewed and pt denies Past Patient History - Infectious Disease Hx of Infectious Diseases: None - Tetanus Immunizations Tetanus Immunization: Unknown - Past Medical History & Family History Past Medical History?: Yes Past Family History: Reviewed and not pertinent - Past Social History Smoking Status: Never Smoked Chewing Tobacco Use: No Cigar Use: No Alcohol: None Drugs: Denies Home Situation {Lives}: Homeless Domestic Violence: Negative - CARDIAC Hx Hypertension: Yes (Pt states she used to have high BP and used to take med ???) Other/Comment: she said she had high blood pressure previously but no longer takes med, unsure when she was dx nor what med she took - PULMONARY Hx Tuberculosis: No - NEUROLOGICAL Hx Seizures: No - HEENT Hx HEENT Problems: No - RENAL Hx Chronic Kidney Disease: No - ENDOCRINE/METABOLIC Hx Endocrine Disorders: No - HEMATOLOGICAL/ONCOLOGICAL Hx Anemia: Yes Hx Human Immunodeficiency Virus (HIV): No - INTEGUMENTARY Hx Dermatological Problems: No - MUSCULOSKELETAL/RHEUMATOLOGICAL Hx Musculoskeletal Disorders: No - GASTROINTESTINAL Hx Gastrointestinal Disorders: No - GENITOURINARY/GYNECOLOGICAL Hx Sexually Transmitted Disorders: No - PSYCHIATRIC Hx Bipolar Disorder: Yes Hx Schizophrenia: Yes Hx Substance Use: No - SURGICAL HISTORY Hx Surgeries: No - ANESTHESIA Hx Anesthesia: No Hx Anesthesia Reactions: No Meds Allergies/Adverse Reactions: Allergies Allergy/AdvReac Type Severity Reaction Status Date / Time pollen extracts Allergy Verified 03/06/18 19:37 - Medications Medications: Current Medications Acetaminophen (Tylenol 325mg Tab) 650 mg PO Q4 PRN PRN Reason: Pain, moderate (4-7) Al Hydrox/Mg Hydrox/Simethicone (Maalox Plus 30 Ml) 30 ml PO Q4 PRN PRN Reason: Dyspepsia Diphenhydramine HCl (Benadryl) 50 mg IM Q6 PRN PRN Reason: Extrapyramidal S/S Unable PO Diphenhydramine HCl (Benadryl) 50 mg PO Q6 PRN PRN Reason: Extrapyramidal Symptoms Haloperidol (Haldol) 5 mg PO Q4 PRN PRN Reason: Agitation Haloperidol Lactate (Haldol) 5 mg IM Q4 PRN PRN Reason: Agitation, Unable to Take PO Lorazepam (Ativan) 2 mg IM Q4 PRN PRN Reason: Anxiety/Agitation,Unable PO Lorazepam (Ativan) 2 mg PO Q4 PRN PRN Reason: Anxiety/Agitation Magnesium Hydroxide (Milk Of Magnesia) 30 ml PO HS PRN PRN Reason: Constipation Physical Exam - Constitutional Appears: No Acute Distress - Head Exam Head Exam: NORMAL INSPECTION, NORMOCEPHALIC - Eye Exam Eye Exam: EOMI, Normal appearance, PERRL Pupil Exam: NORMAL ACCOMODATION - ENT Exam ENT Exam: Mucous Membranes Moist, Normal External Ear Exam - Neck Exam Neck exam: Positive for: Full Rom. Negative for: Meningismus - Respiratory Exam Respiratory Exam: NORMAL BREATHING PATTERN. absent: Respiratory Distress - Cardiovascular Exam Cardiovascular Exam: REGULAR RHYTHM, +S1, +S2 - GI/Abdominal Exam GI & Abdominal Exam: Normal Bowel Sounds, Soft. absent: Tenderness - Extremities Exam Extremities exam: Positive for: full ROM, normal capillary refill, pedal pulses present. Negative for: calf tenderness, pedal edema - Back Exam Back exam: FULL ROM. absent: CVA tenderness (L), CVA tenderness (R) - Neurological Exam Neurological exam: Alert, CN II-XII Intact, Reflexes Normal Additional comments: oriented to person and place - Psychiatric Exam Psychiatric exam: Flat Affect - Skin Skin Exam: Dry, Normal Color, Warm Results - Vital Signs Recent Vital Signs: Last Vital Signs Temp 97.6 F 09/22/18 16:35 Pulse 69 09/22/18 16:35 Resp 20 09/22/18 16:35 BP 124/72 09/22/18 16:35 Pulse Ox 100 09/22/18 14:46 - Labs Result Diagrams: 09/22/18 01:37 09/22/18 01:37 Labs: Laboratory Results - last 24 hr 09/22/18 09/22/18 09/22/18 01:37 01:37 01:37 WBC 5.2 RBC 3.84 Hgb 11.0 L Hct 32.8 L MCV 85.3 D MCH 28.6 MCHC 33.5 RDW 15.0 H Plt Count 230 MPV 8.1 Neut % (Auto) 47.3 L Lymph % (Auto) 41.8 H [place] % (Auto) 8.8 Eos % (Auto) 1.4 Baso % (Auto) 0.7 Neut # (Auto) 2.4 Lymph # (Auto) 2.2 [place] # (Auto) 0.5 Eos # (Auto) 0.1 Baso # (Auto) 0.0 Sodium 140 Potassium 3.9 Chloride 104 Carbon Dioxide 23 Anion Gap 17 BUN 12 Creatinine 0.8 Est GFR ( Amer) > 60 Est GFR (Non-Af Amer) > 60 Random Glucose 92 Calcium 9.5 Total Bilirubin 0.4 AST 25 ALT 28 Alkaline Phosphatase 78 Total Protein 7.4 Albumin 4.1 Globulin 3.3 Albumin/Globulin Ratio 1.2 Salicylates < 1.0 Urine Opiates Screen Urine Methadone Screen Acetaminophen < 10.0 L Ur Barbiturates Screen Ur Phencyclidine Scrn Ur Amphetamines Screen U Benzodiazepines Scrn U Oth Cocaine Metabols U Cannabinoids Screen Alcohol, Quantitative < 10 09/22/18 10:00 WBC RBC Hgb Hct MCV MCH MCHC RDW Plt Count MPV Neut % (Auto) Lymph % (Auto) [place] % (Auto) Eos % (Auto) Baso % (Auto) Neut # (Auto) Lymph # (Auto) [place] # (Auto) Eos # (Auto) Baso # (Auto) Sodium Potassium Chloride Carbon Dioxide Anion Gap BUN Creatinine Est GFR ( Amer) Est GFR (Non-Af Amer) Random Glucose Calcium Total Bilirubin AST ALT Alkaline Phosphatase Total Protein Albumin Globulin Albumin/Globulin Ratio Salicylates Urine Opiates Screen Negative Urine Methadone Screen Negative Acetaminophen Ur Barbiturates Screen Negative Ur Phencyclidine Scrn Negative Ur Amphetamines Screen Negative U Benzodiazepines Scrn Negative U Oth Cocaine Metabols Negative U Cannabinoids Screen Negative Alcohol, Quantitative - Imaging and Cardiology Chest x-ray Status: Report reviewed by me (negative) Assessment & Plan (1) Schizophrenia Status: Chronic Comment: prob paranoid. Mgt per Psych (2) Anemia Status: Chronic Comment: Hgb =11. cont Multivitamin (3) HTN (hypertension) Status: Chronic Comment: Questionable hx of HTN. will monitor. BP stable at present without any med
[2018-09-22] MEDS ORDERED: Influenza Vaccine 60 mcg/0.5 mL SYR (4YR UP) IM ONE (19:01)
[2018-09-22] MEDS ORDERED: Pneumococcal 23-Valent Vaccine IM ONE (19:02)
[2018-09-23 10:58] LABS: T4 7.68 ug/dl (5.5-11.0)
--- NOTE | 2018-09-23 14:49 | PCM.PSYCH ---
Initial Psychiatric Evaluation - Initial Psychiatric Evaluation Type of Admission: Voluntary Chief Complaint (in patient's own words): I am tired History of Present Illness and Precipitating Events: pt is 28 ys old female with previous psychiatric diagnosis of schizoaffective disorder bipolar type and borderline intellectual function, non compliant with medications, brought to ER by EMS due to disorganized and aggressive behaviour at home, as per mother pt has been behaving in disorganized way, poor sleep , pacing and threatening towards her pt on evaluation with poor eye contact, underproductive speech, tangential thought process with loose association thought blocking internally preoccupied , appears responding to internal stimuli, limited insight into illness , pt denied command hallucinations, denied active thoughts of self harm on the unit Current Medications: Active Medications Generic Name Dose Route Start Last Admin Trade Name Freq PRN Reason Stop Dose Admin Acetaminophen 650 mg 09/22/18 15:49 Tylenol 325mg Tab PO Q4 PRN Pain, moderate (4-7) Al Hydrox/Mg Hydrox/Simethicone 30 ml 09/22/18 15:49 Maalox Plus 30 Ml PO Q4 PRN Dyspepsia Diphenhydramine HCl 50 mg 09/22/18 15:49 Benadryl IM Q6 PRN Extrapyramidal S/S Unable PO Diphenhydramine HCl 50 mg 09/22/18 15:49 09/22/18 20:41 Benadryl PO 50 mg Q6 PRN Administration Extrapyramidal Symptoms Diphenhydramine HCl 50 mg 09/22/18 20:10 Benadryl PO HS PRN Sleep Haloperidol 5 mg 09/22/18 15:49 09/22/18 20:41 Haldol PO 5 mg Q4 PRN Administration Agitation Haloperidol Lactate 5 mg 09/22/18 15:49 Haldol IM Q4 PRN Agitation, Unable to Take PO Lorazepam 2 mg 09/22/18 15:49 Ativan IM Q4 PRN Anxiety/Agitation,Unable PO Lorazepam 2 mg 09/22/18 15:49 09/22/18 20:41 Ativan PO 2 mg Q4 PRN Administration Anxiety/Agitation Magnesium Hydroxide 30 ml 09/22/18 15:49 Milk Of Magnesia PO HS PRN Constipation Multivitamins/Minerals 1 tab 09/23/18 09:00 Therapeutic-M Tab PO DAILY [place]MIN[place] Past Psychiatric History - Past Psychiatric History Explanation of prior treatment: multiple inpatient hospitalizations, history of noncompliance Pertinent Medical Hx (Current Medical&Sleep Prob, Allergies): Allergies Allergy/AdvReac Type Severity Reaction Status Date / Time pollen extracts Allergy Verified 03/06/18 19:37 Haloperidol [Haldol] 5 mg PO BID 02/15/18 Vit Calc,Iron,Folic [ Vitamins] 1 tab PO DAILY #30 tablet 02/18/18 DiphenhydrAMINE [Benadryl] 25 mg PO BID 03/06/18 Mental Status Examination - Personal Presentation Personal Presentation: Looks older than stated age Additional comments: unkempt, disheveled - Affect Affect: Constricted - Motor Activity Motor Activity: Psychomotor Retardation - Reliability in Providing Information Reliability in Providing Information: Poor, due to alteration in thoughts, Poor, due to altered mood - Speech Speech: Disorganized, Tangential - Mood Mood: Depressed, Anxious - Formal Thought Process Formal Thought Process: Hallucinations, Delusions, Paranoia, Loosening of associations - Hallucinations/Delusions Hallucinations: Auditory - Cognitive Functions Orientation: Person Sensorium: Alert Attention/Concentration: Easily distracted Abstract Thinking: [place] Judgement: Imparied, as evidence by: Poor judgement, Imparied, as evidence by: Lack of insight into illness - Risk Risk: Diminished functioning - Strength & Assets Inventory Strength & Assets Inventory: Family support - Limitations Additional comments: poor compliance DSM 5 DX - DSM 5 DSM 5 Diagnosis: schizoaffective disorder borderline intellectual function - Recommended/Plan of Treatment Treatment Recommendations and Plan of Treatment: start haldol 5mgtid, cogentin 1mgtid change to haldol decanoate for compliance upon pt consent supportive therapy and psychoeducation
[2018-09-23] MEDS: Multivitamin With Minerals Tab PO SCH (17:25)
[2018-09-23 18:48] VITALS: RESP 18
[2018-09-24] MEDS: Multivitamin With Minerals Tab PO SCH (09:37)
--- NOTE | 2018-09-24 14:38 | PCM.PYCHPN ---
Psychiatric Progress Note - Psychiatric Progress Note Patient seen today, length of contact: pt evaluated discussed with team chart reviewed Patient Chief Complaint: I am not sure what to do Problems Identified/Issues Discussed: pt on evaluation presenting with disorganized thought process, loose association, thought blocking , internally preoccupied , reporting continues to have repeated suicidal ideation but refusing to reveal the plan, pt paranoid and guarded, has no insight into illness, signed 48 hour notice requesting to be discharged , poor insight into illness with partial compliance with medications, poor sleep and not attending to her ADL'S treatment plan discussed with mother MRS Jacome [phone] upon pt consent Medical Problems: multiple inpatient hospitalizations, history of noncompliance DSM 5 Symptoms Update: SCHIZOAFFECTIVE DISORDER BIPOLAR TYPE BORDERLINE INTELLECTUAL FUNCTION Medication Change: Yes (gradual increase in haldol) Medical Record Reviewed: Yes Mental Status Examination - Cognitive Function Orientation: Person, Place Memory: Intact Attention: Poor Concentration: Poor Association: Loose Fund of Knowledge: Poor Decription of patient's judgement and insights: poor insight and judgment - Mood Mood: Depressed, Anxious - Affect Affect: Broad Additional comments: labile - Speech Speech: Slurred, Pressured - Formal Thought Process Formal Thought Process: Hallucinations, Delusions, Paranoia, Loosening of associations - Suicidal Ideation Suicidal Ideation: Yes - Homicidal Ideation Homicidal Ideation: No Goal/Treatment Plan - Goal/Treatment Plan Need for Continued Stay: Discharge may exacerbated symptoms, Failed transitioning Progress Toward Problem(s) and Goals/Treatment Plan: pt disorganized psychotic labile delusional poor insight and judgment , pt signed 48 hour notice requesting to be discharged pt will be referred for screeing for involuntary admission as she continues to need further stabilization haldol 5mgtid, cogentin 1mgtid change to haldol decanoate for compliance upon pt consent supportive therapy and psychoeducation
[2018-09-24 21:34] LABS: SQUAMOUS EPITHIAL 1 /hpf (0-5); URINE BACTERIA RARE (<OCC); URINE BILIRUBIN NEGATIVE (NEGATIVE); URINE BLOOD SMALL (NEGATIVE); URINE CLARITY SLIGHTY-CLOUDY (Clear); URINE COLOR YELLOW (YELLOW); URINE GLUCOSE (UA) NEG (NEGATIVE); URINE LEUKOCYTE ESTERASE NEG Leu/uL (Negative); URINE PROTEIN NEGATIVE (NEGATIVE)
[2018-09-25] MEDS: Multivitamin With Minerals Tab PO SCH (09:56)
[2018-09-25 13:49] VITALS: BP 141/71; PULSE 73; TEMP 9.6
--- NOTE | 2018-09-25 14:24 | PCM.PYCHDC ---
Mental Status Examination - Mental Status Examination Orientation: Person, Place Memory: Intact Mood: Anxious Affect: Constricted Speech: Soft Attention: Poor Concentration: Poor Association: Loose Fund of Knowledge: Poor Formal Thought Process: Delusions, Paranoia, Circumstantial Description of patient's judgement and insight: poor insight and judgment Suicidal Ideation: No Current Homicidal Ideation?: No Discharge Summary - Discharge Note Reason for Hospitalization: pt is 28 ys old female with previous psychiatric diagnosis of schizoaffective disorder bipolar type and borderline intellectual function, non compliant with medications, brought to ER by EMS due to disorganized and aggressive behaviour at home, as per mother pt has been behaving in disorganized way, poor sleep , pacing and threatening towards her pt on evaluation with poor eye contact, underproductive speech, tangential thought process with loose association thought blocking internally preoccupied , appears responding to internal stimuli, limited insight into illness , pt denied command hallucinations, denied active thoughts of self harm on the unit Laboratory Data: Abnormal Lab Results 09/24/18 21:19 Urine Color Yellow Urine Clarity Slighty-cloudy Urine pH 6.0 Ur Specific [place] 1.026 Urine Protein Negative Urine Glucose (UA) Neg Urine Ketones Negative Urine Blood Small Urine Nitrate Negative Urine Bilirubin Negative Urine Urobilinogen 1.0 Ur Leukocyte Esterase Neg Urine RBC (Auto) 3 Urine Microscopic WBC 1 Ur Squamous Epith Cells 1 Urine Bacteria Rare Consultations:: List each consultation separately and include: 1. Reason for request. 2. Findings. 3. Follow-up Summary of Hospital Course include:: 1. Description of specific treatment plan utilized for patients during their course of treatmen. 2. Summarize the time- course for resolution of acute symptoms and/or regressed behaviors. 3. Describe issues identified and worked on during hospitalization. 4. Describe medication utilized. 5. Describe medical problems identified and treated. 6. Reassessment of suicide risk Summary of Hospital Course: pt on admission was disorganized, psychotic with limited insight into illness, pt was started on haldol on second day of admission, pt signed 48 hours notice for discharge pt was referred for screening for involuntary admission for further stabilization and was accepted by [facility] - Diagnosis (1) Psychosis Current Visit: Yes Status: Acute - Final Diagnosis (DSM 5) Condition upon Discharge: GOOD DSM 5: schizoaffective disorder bipolar borderline intellectual function Dis[facility] Follow-up Treatment Plan: pt disorganized psychotic labile delusional poor insight and judgment , pt signed 48 hour notice requesting to be discharged pt will be referred for screeing for involuntary admission as she continues to need further stabilization haldol 5mgtid, andi 1mgtid change to haldol decanoate for compliance upon pt consent supportive therapy and psychoeducation - Antipsychotic Medications Pt discharged on 2 or more routine antipsychotic medications: No
== END 2018-09-25 13:15 | DRG 430 ==
LOC: H.ER 07:55 → H.ERHOLD 11:51 → H.STEP 15:16 → H.PSYCH 20:08
PROVIDERS: ADMIT Psychiatry & Neurology Psychiatry; ATTEND Psychiatry & Neurology Psychiatry
PROC: GZHZZZZ Group Psychotherapy (ICD-10-PCS; principal; 2018-09-22)
PROC: GZ56ZZZ Individual Psychotherapy, Supportive (ICD-10-PCS; 2018-09-22)
PROC: 3E02340 Introduction of Influenza Vaccine into Muscle, Percutaneous Approach (ICD-10-PCS; 2018-09-23)
PROC: 3E0234Z Introduction of Serum, Toxoid and Vaccine into Muscle, Percutaneous Approach (ICD-10-PCS; 2018-09-23)
DX: F25.0 Schizoaffective disorder, bipolar type (principal); R45.851 Suicidal ideations; Z91.14 Patient's other noncompliance with medication regimen; I10 Essential (primary) hypertension; D64.9 Anemia, unspecified; R41.83 Borderline intellectual functioning; Z23 Encounter for immunization

== ENCOUNTER 2018-10-31 17:28 | Emergency (ER) | payer MEDICAID ==
[2018-10-31 17:28] VITALS: BMI 31.8
[2018-10-31 18:05] VITALS: BP 108/64; PULSE 96; RESP 16; TEMP 98.8; O2SAT 99
[2018-10-31] MEDS ORDERED: Sodium Chloride 0.9% 1,000 ML IV STA (18:22)
--- NOTE | 2018-10-31 18:33 | ED PDOC ---
HPI:Nausea, Vomiting, Diarrhea Time Seen by Provider: 10/31/18 18:18 Chief Complaint (Nursing): GI Problem Chief Complaint (Provider): Nausea and vomiting History Per: Patient History/Exam Limitations: no limitations Onset/Duration Of Symptoms: Days (x3) Current Symptoms Are (Timing): Still Present Associated Symptoms: Nausea, Vomiting Additional Complaint(s): 28 year old female, with no past medical history, presents to the ED with 3 days of nausea and 1 episode of vomiting 3 days ago. Patient reports she is able to tolerate small amounts of food and water. She states she felt dehydrated and dizzy but is normal now. Patient had a normal vaginal delivery in July and has had no period since. Patient states she is currently sexually active. Denies sick contacts or change in diet. PMD: Crow Galindo Past Medical History Reviewed: Historical Data, Nursing Documentation, Vital Signs Vital Signs: Last Vital Signs Temp 98.8 F 10/31/18 18:03 Pulse 96 H 10/31/18 18:03 Resp 16 10/31/18 18:03 BP 108/64 10/31/18 18:03 Pulse Ox 99 10/31/18 18:03 - Medical History PMH: Anemia, Anxiety, Bipolar Disorder, Depression, Schizophrenia (paranoid) Denies: Diabetes, Hepatitis, HIV, HTN, Chronic Kidney Disease, Seizures, Sexually Transmitted Disease - Surgical History Surgical History: No Surg Hx - Family History Family History: States: Unknown Family Hx, Hypertension - Immunization History Hx Tetanus Toxoid Vaccination: No Hx Influenza Vaccination: No Hx Pneumococcal Vaccination: No - Home Medications Home Medications: Ambulatory Orders Medication Instructions Recorded Haloperidol [Haldol] 5 mg PO BID 02/15/18 Vit Calc,Iron,Folic 1 tab PO DAILY #30 tablet 02/18/18 [ Vitamins] DiphenhydrAMINE [Benadryl] 25 mg PO BID 03/06/18 Acetaminophen [Tylenol 325mg tab] 650 mg PO Q4 PRN tab 09/25/18 Aluminum Hydroxide/Magnesium 30 ml PO Q4 PRN udc 09/25/18 [Maalox Plus 30 ml] Benztropine [Cogentin] 1 mg PO TID tab 09/25/18 DiphenhydrAMINE [Benadryl] 50 mg IM Q6 PRN vial 09/25/18 DiphenhydrAMINE [Benadryl] 50 mg PO HS PRN cap 09/25/18 DiphenhydrAMINE [Benadryl] 50 mg PO Q6 PRN cap 09/25/18 Haloperidol Lactate [Haldol] 5 mg IM Q4 PRN vial 09/25/18 Haloperidol [Haldol] 5 mg PO Q4 PRN tab 09/25/18 Haloperidol [Haldol] 5 mg PO TID tab 09/25/18 LORazepam [Ativan] 2 mg IM Q4 PRN vial 09/25/18 LORazepam [Ativan] 2 mg PO Q4 PRN tab 09/25/18 Magnesium Hydroxide [Milk Of 30 ml PO HS PRN udc 09/25/18 Magnesia] Multimineral/Multivitamin 1 tab PO DAILY tab 09/25/18 [Therapeutic-M Tab] traZODone [Desyrel] 100 mg PO HS tab 09/25/18 - Allergies Allergies/Adverse Reactions: Allergies Allergy/AdvReac Type Severity Reaction Status Date / Time pollen extracts Allergy ITCHING Verified 10/31/18 18:03 Review of Systems ROS Statement: Except As Marked, All Systems Reviewed And Found Negative Gastrointestinal: Positive for: Nausea, Vomiting (x1) Physical Exam - Reviewed Nursing Documentation Reviewed: Yes Vital Signs Reviewed: Yes - Physical Exam Appears: Positive for: No Acute Distress Head Exam: Positive for: ATRAUMATIC, NORMOCEPHALIC Skin: Positive for: Normal Color, Warm, Dry Eye Exam: Positive for: Normal appearance Neck: Positive for: Normal, Painless ROM Cardiovascular/Chest: Positive for: Regular Rate, Rhythm Respiratory: Positive for: Normal Breath Sounds. Negative for: Wheezing, Respiratory Distress Gastrointestinal/Abdominal: Positive for: Normal Exam, Soft. Negative for: Tenderness Extremity: Positive for: Normal ROM Neurological/Psych: Positive for: Awake, Alert, Normal Tone, Oriented - Laboratory Results Result Diagrams: 10/31/18 18:30 10/31/18 18:30 - ECG O2 Sat by Pulse Oximetry: 99 (RA) Pulse Ox Interpretation: Normal Medical Decision Making Medical Decision Making: Initial Impression: workup for nausea Initial Plan: --Basic labs --IV fluids --Zofran --Urine dipstick --Urine --Reassess patient 19:00 Patient is stable for discharge. Labs are normal and patient is tolerating PO. Scribe Attestation: Documented by Edmundo Ralph acting as a scribe for Nyasia Koch MD. Provider Scribe Attestation: All medical record entries made by the Scribe were at my direction and personally dictated by me. I have reviewed the chart and agree that the record accurately reflects my personal performance of the history, physical exam, medical decision making, and the department course for this patient. I have also personally directed, reviewed, and agree with the discharge instructions and disposition. Disposition - Disposition Forms: [employer] (French)
[2018-10-31 18:41] LABS: BASO % 0.5 % (0.0-2.0); EOS # 0.1 K/uL (0.0-0.7); EOS % 1.5 % (0.0-4.0); HEMOGLOBIN 11.3 g/dL (12.0-16.0); LYMPH # 1.8 K/uL (1.0-4.3); LYMPH % 32.1 % (20.0-40.0); MEAN CELL VOLUME 84.9 fl (81.0-99.0); MEAN CORPUSCULAR HEMOGLOBIN 28.4 pg (27.0-31.0); MEAN CORPUSCULAR HGB CONC 33.5 g/dL (33.0-37.0); MEAN PLATELET VOLUME 8.3 fl (7.2-11.7); MONO # 0.5 K/uL (0.0-0.8); MONO % 8.8 % (0.0-10.0); NEUT # 3.1 K/uL (1.8-7.0); NEUT % 57.1 % (50.0-75.0); RBC 3.99 Mil/uL (3.80-5.20); RED CELL DISTRIBUTION WIDTH 15.2 % (11.5-14.5); WHITE BLOOD COUNT 5.5 K/uL (4.8-10.8)
[2018-10-31 18:48] LABS: ALB/GLOB RATIO 1.2 (1.0-2.1); ALBUMIN 4.2 g/dL (3.5-5.0); ALT/SGPT 38 U/L (9-52); AST/SGOT 29 U/L (14-36); BLOOD UREA NITROGEN 13 mg/dl (7-17); CALCIUM 9.3 mg/dL (8.4-10.2); GFR NON-AFRICAN AMERICAN > 60; SQUAMOUS EPITHIAL 16 /hpf (0-5); URINE BACTERIA RARE (<OCC); URINE BILIRUBIN NEGATIVE (NEGATIVE); URINE BLOOD NEGATIVE (NEGATIVE); URINE CLARITY CLOUDY (Clear); URINE COLOR YELLOW (YELLOW); URINE GLUCOSE (UA) NEG (NEGATIVE); URINE LEUKOCYTE ESTERASE SMALL Leu/uL (Negative); URINE PROTEIN NEGATIVE (NEGATIVE)
== END 2018-10-31 22:00 | disposition home or self-care (01) ==
LOC: H.ER 17:28
DX: R11.2 Nausea with vomiting, unspecified (principal)
CPT/HCPCS: 80053; 81003; 81025; 85025; 96374; 99284; J2405; J7030